=== PATIENT | female | born 1960 | race Caucasian/White ===

== ENCOUNTER 2018-01-28 09:46 | Emergency (ER) | payer BC ==
[2018-01-28 09:57] VITALS: BP 145/96; PULSE 72; RESP 18; TEMP 97.9; O2SAT 100
[2018-01-28] MEDS ORDERED: Oxycodone/Acetaminophen 5/325 mg Tab PO STA (11:25)
[2018-01-28] MEDS ORDERED: Oxycodone/Acetaminophen 5/325 mg Tab ONE (11:28)
--- NOTE | 2018-01-28 11:35 | C.PDOC ---
History Of Present Illness 57 y/o female presents to ED with complaints of left neck and left posterior shoulder pain radiating to left arm for 5 days. Patient states she developed pain while she was giving grandson a bath and reports tingling and numbness to left arm. Patient was seen at [facility] twice for same symptoms and given Morphine , had xray that was normal and was sent home on valium and naproxen. Patient states medication have no improved symptoms which prompted visit to ED and denies trauma, chest pain, sob, cough or fever. No other complaint at this time. Time Seen by Provider: 01/28/18 10:00 Chief Complaint (Nursing): Back Pain History Per: Patient History/Exam Limitations: no limitations Onset/Duration Of Symptoms: Days Current Symptoms Are (Timing): Still Present Quality Of Discomfort: "Pain" Past Medical History Reviewed: Historical Data, Nursing Documentation, Vital Signs Vital Signs: Last Vital Signs Temp 97.9 F 01/28/18 09:55 Pulse 72 01/28/18 09:55 Resp 18 01/28/18 09:55 BP 145/96 H 01/28/18 09:55 Pulse Ox 100 01/28/18 11:39 - Medical History PMH: HTN Surgical History: Appendectomy Family History: States: No Known Family Hx - Social History Hx Alcohol Use: No Hx Substance Use: No - Immunization History Hx Tetanus Toxoid Vaccination: No Hx Influenza Vaccination: No Hx Pneumococcal Vaccination: No Review Of Systems Musculoskeletal: Positive for: Neck Pain, Shoulder Pain, Arm Pain Neurological: Positive for: Numbness Physical Exam - Physical Exam Appears: Non-toxic, Other (In moderate made, Uncomfortable) Skin: Warm, Dry, No Rash Head: Atraumatic, Normacephalic Eye(s): bilateral: Normal Inspection Oral Mucosa: Moist Neck: No Midline Cervical Tenderness, Other (Lateral aspect C7 level tenderness) Cardiovascular: Rhythm Regular Respiratory: Normal Breath Sounds, No Rales, No Rhonchi, No Wheezing Extremity: Tenderness (to superior aspect of scalupa of posterior left shoulder) , Capillary Refill (<2 seconds), No Deformity Extremity: Left: Limited ROM To Joint (shoulder secondary to pain ) Pulses: Left Radial: Normal, Right Radial: Normal Neurological/Psych: Oriented x3, Normal Motor, Normal Sensation ED Course And Treatment O2 Sat by Pulse Oximetry: 100 (RA) Progress Note: Toradol, Flexiril and Prednisone administered Disposition Counseled Patient/Family Regarding: Studies Performed, Diagnosis, Need For Followup, Rx Given - Disposition Referrals: Katlyn Bradley MD [Medical Doctor] - Disposition: HOME/ ROUTINE Disposition Time: 11:50 Condition: STABLE Additional Instructions: FOLLOW UP WITH DR BRADLEY IN 1-2 DAYS USE MEDICATIONS NEEDED RETURN TO ER IF SYMPTOMS WORSEN Prescriptions: oxyCODONE/Acetaminophen [Percocet 5/325 mg Tab] 1 tab PO QID PRN #15 tab PRN Reason: Pain predniSONE [predniSONE Tab] 40 mg PO DAILY #10 tab Instructions: Radiculopathy, Upper Back Pain (DC) Forms: [employer] (Greenlandic) Print Language: FRENCH - POA Present On Arrival: None - Clinical Impression Clinical Impression: Cervical radiculopathy, Thoracic back pain, Shoulder pain, left - Scribe Statement The provider has reviewed the documentation as recorded by the Leonor Sotelo All medical record entries made by the Leonor were at my direction and personally dictated by me. I have reviewed the chart and agree that the record accurately reflects my personal performance of the history, physical exam, medical decision making, and the department course for this patient. I have also personally directed, reviewed, and agree with the discharge instructions and disposition.
== END 2018-01-28 12:05 | disposition home or self-care (01) ==
LOC: C.ER 09:46
DX: M54.12 Radiculopathy, cervical region (principal); M54.6 Pain in thoracic spine; M25.512 Pain in left shoulder
CPT/HCPCS: 96372; 99283; J1885